=== PATIENT | female | born 1995 | race Caucasian/White ===

== ENCOUNTER 2024-09-03 15:22 | Emergency (ER) | payer MEDICAID ==
[~2024-09-03] VITALS: Ht 160 cm; Wt 60.0 kg
[2024-09-03 15:25] VITALS: O2SAT 100
[2024-09-03 16:46] LABS: BASOPHILS % 0.5 % (0.0-2.0); HEMOGLOBIN. 7.5 g/dL (12.0-16.0); LYMPHOCYTES % 10.4 % (20.0-50.0); MEAN CORPUSCULAR HEMOGLOBIN 21.6 pg (28.0-32.0); MEAN CORPUSCULAR HGB CONC 31.3 g/dL (31.0-37.0); MEAN CORPUSCULAR VOLUME 68.9 fL (81.0-99.0); MONOCYTES % 4.4 % (2.0-8.0); NEUTROPHILS % 84.7 % (40.0-76.0); PLATELET 318 x1000/uL (130-400); RED BLOOD CELL COUNT 3.48 mill/uL (4.2-5.4); RED CELL DISTRIBUTION WIDTH 19.3 % (11.6-14.6); WHITE BLOOD COUNT 6.1 x1000/uL (4.5-11.0)
[2024-09-03 16:47] LABS: ADD RBC MORPHOLOGY YES; DIFFERENTIAL COMMENT 1
[2024-09-03 16:58] LABS: CHLORIDE 106 mEq/L (98-107); POTASSIUM 3.6 mEq/L (3.5-5.1); SODIUM 138 mEq/L (136-145)
[2024-09-03 16:59] LABS: CALCIUM 9.6 mg/dL (8.7-10.4); CARBON DIOXIDE 20 mEq/L (21-32)
[2024-09-03 17:03] LABS: HCG SCREEN NEGATIVE
[2024-09-03 17:04] LABS: CREATININE 0.7 mg/dL (0.6-1.0); GLUCOSE 122 mg/dL (70-105); UREA NITROGEN BLOOD 19 mg/dL (9-23)
[2024-09-03 17:06] LABS: ALANINE AMINOTRANSFERASE 22 IU/L (10-49); ALBUMIN 4.6 g/dL (3.2-4.8); ASPARTATE AMINOTRANSFERASE 26 IU/L (<34); BILIRUBIN DIRECT 0.1 mg/dL (<=3.0); BILIRUBIN TOTAL 0.4 mg/dL (0.1-1.0); PROTEIN TOTAL 7.9 g/dL (6.0-8.3)
[2024-09-03 17:08] LABS: PLATELET ESTIMATE NORMAL
[2024-09-03 17:09] LABS: HYPOCHROMASIA 1+; MICROCYTOSIS 2+; TEAR DROP CELLS 1+
[2024-09-03] MEDS ORDERED: FAMO20TA8 MT (17:46)
[2024-09-03] MEDS ORDERED: MAG355OR21 MT (17:46)
[2024-09-03] MEDS ORDERED: ONDA-239 PO (17:46)
[2024-09-03 18:04] VITALS: BP 100/67; PULSE 100; RESP 18; TEMP 36.72516; O2SAT 100
== END 2024-09-03 18:25 | disposition home or self-care (01) ==
LOC: ER 15:22
DX: R10.84 Generalized abdominal pain (principal); R11.10 Vomiting, unspecified; Z98.890 Other specified postprocedural states
CPT/HCPCS: 36415; 80048; 80076; 84703; 85025; 99283